=== PATIENT | female | born 1990 | race Hispanic/Latino ===

== ENCOUNTER 2023-04-29 15:37 | Emergency (ER) | payer SELFPAY ==
--- NOTE | ~2023-04-29 | XR_ITS ---
EXAMINATION: XR chest 2V DATE: 04/29/2023 22:32 INDICATION: Fever. Congestion. TECHNIQUE: Frontal and lateral views of the chest were obtained. COMPARISON: None. FINDINGS: There is no pneumonia, pleural effusion, or pneumothorax. Cardiomegaly is noted. IMPRESSION: 1. Cardiomegaly. Reviewed, dictated and finalized at location E. C COPYIST IMPRESSION: 1. Cardiomegaly.
[2023-04-29 16:12] VITALS: BP 130/84; PULSE 112; RESP 20; TEMP 37.7; O2SAT 99
[2023-04-29 17:30] LABS: Influenza A QL RT-PCR Negative (Negative); Influenza B QL RT-PCR Negative (Negative); RSV RNA, RT-PCR Negative (Negative); SARS-CoV-2 RNA PCR Negative (Negative)
--- NOTE | 2023-04-29 21:40 | ECG_ITS ---
Measurements Intervals [place] Rate: 82 P: 72 WA: 143 QRS: -6 QRSD: 94 T: -28 QT: 392 QTc: 459 Interpretive Statements SINUS RHYTHM POSSIBLE LEFT ATRIAL ENLARGEMENT T WAVE ABNORMALITY IN ANTERIOR LEADS- CONSIDER ISCHEMIA BASELINE ARTIFACT- I, III, AVL ABNORMAL ECG NO PREVIOUS ECG AVAILABLE FOR COMPARISON Electronically Signed On 04-30-2023 6:27:46 [employer] by Reginald Tinsley D.O.
--- NOTE | 2023-04-29 21:40 | ED.GENADULT ---
HPI - General Adult General Chief complaint: Unspecified Stated complaint: nausea, headaches, pain everywhere Time Seen by Provider: 04/29/23 19:29 History of Present Illness HPI narrative: 32-year-old female reports for evaluation for nausea, body aches, subjective fever, chills, headache and sore throat since yesterday. Patient states her throat hurts worse when swallowing. LMP 1 week ago. Denies diarrhea, vomiting, abdominal pain, vaginal discharge or concern for STDs, cough, dyspnea, Nuchal rigidity. Denies recent head injury or trauma, vision changes, focal numbness or weakness. denies dysuria, hematuria, urinary frequency urgency. Related Data Allergies Allergy/AdvReac Type Severity Reaction Status Date / Time No Known Allergies Allergy Verified 04/29/23 16:17 Review of Systems Review of Systems: CONSTITUTIONAL: See HPI EYES: Denies visual changes, redness, or discharge. ENT: see HPI CARDIOVASCULAR: Denies chest pain, palpitations, or edema. RESPIRATORY: Denies cough or dyspnea. GASTROINTESTINAL: see HPI GENITOURINARY: Denies dysuria or hematuria. SKIN: Denies rash or itching. MUSCULOSKELETAL: Denies back pain, joint pain, or myalgia. NEUROLOGIC: See HPI PSYCHIATRIC: Denies anxiety or depression. Exam Narrative: GENERAL: In no acute distress. Ill-appearing. patient resting comfortably in exam bed. She is pleasant and conversational. HEAD: Normocephalic, atraumatic. EYES: PERRLA and EOMI. ENT: Nares clear, no rhinorrhea or epistaxis. Mucous membranes moist. Posterior pharynx with mild erythema. No tonsillar hypertrophy or exudates. Uvula is midline. Patient is tolerating her secretions. no airway compromise. NECK: Supple. No nuchal rigidity. CHEST: Clear to auscultation. No respiratory distress. HEART: Regular rate and rhythm. No murmur heard. Normal peripheral pulses. ABDOMEN: Soft, nontender, nondistended, normal active bowel sounds. No CVA tenderness. No guarding, Rebound or rigidity. SKIN: Warm, dry, no rash. NEURO: No focal deficits. Alert and oriented x3 . Moving all extremities spontaneously. Course Vital Signs Vital signs: Vital Signs Temperature 99.9 F H 04/29/23 16:12 Pulse Rate 112 H 04/29/23 16:12 Respiratory Rate 20 04/29/23 16:12 Blood Pressure 130/84 04/29/23 16:12 Pulse Oximetry 99 04/29/23 16:12 Oxygen Delivery Room Air 04/29/23 16:12 Temperature 98.6 F 04/29/23 23:21 Pulse Rate 99 04/29/23 23:21 Respiratory Rate 15 04/29/23 23:21 Blood Pressure 128/84 04/29/23 23:21 Pulse Oximetry 100 04/29/23 23:21 Oxygen Delivery Room Air 04/29/23 16:12 Medical Decision Making MDM Narrative Medical decision making narrative: 32-year-old female reports for evaluation for nausea, body aches, subjective fever, chills, headache, sore throat x1 day. See HPI for further history. Triage vital significant for tachycardia of 12 and a temperature of 99.9?. She is satting 99% on room air. Exam is significant for the above. CBC with mild leukocytosis of 11.8, no bandemia. Chemistry significant for sodium of 136, potassium of 3.3, otherwise unremarkable. Magnesium is normal. Potassium orally repleted. Urinalysis with 1+ ketones, otherwise no UTI. Flu, COVID, RSV, strep and mono were negative. Chest x-ray shows no acute cardiopulmonary abnormality. is negative. EKG obtain given original sinus tachycardia which shows minimal ST depressions in lead I and II. There are T-wave inversions in lead V3, V4 and V5. Therefore, troponin obtained which is less than 0.012. Patient is denying chest pain or dyspnea. Labs and imaging discussed with the patient. She received IV fluids and headache cocktail with improvement in symptoms. Vitals improved. I suspect a viral syndrome. Encouraged her to drink plenty of fluids. Will send Tylenol ibuprofen for symptomatic control. Advised to follow-up closely with her PCP. Strict ED retu
[2023-04-29] MEDS: SODIUM CHLORIDE 0.9% IV 1,000 ML 999 ML IV CONT (22:19)
[2023-04-29 22:24] LABS: Appearance Urine Clear (Clear); Bilirubin Urine Negative (Negative); Blood Urine Negative (Negative); Color Urine Yellow (Yellow); Glucose Urine UA Negative (Negative); Ketones Urine 1+ mg/dL (Negative); Leukocyte Esterase Ur Negative LEU/UL (Negative); Nitrate Urine Negative (Negative); Protein Urine Negative (Negative); Specific Grav Ur 1.029 (1.001-1.035); Urobilinogen Urine 0.2 mg/dL (<2.0); pH Urine 5.5 (5.0-9.0)
[2023-04-29 22:26] LABS: Basophils Absolute Auto 0.1 K/mm3 (0.0-0.1); Basophils Percent Auto 0.4 % (0.2-1.2); Eosinophils Percent Auto 0.3 % (0-4.4); Hemoglobin 13.4 g/dL (12.0-15.0); Immature Granulocyte Absolute 0.04 K/mm3 (0.00-0.031); Immature Granulocyte Percent A 0.3 % (0-0.5); Lymphocytes Absolute Auto 2.03 K/mm3 (0.9-3.2); Lymphocytes Percent Auto 17.3 % (18.3-44.2); Mean Corpuscular HGB Conc 31.2 g/dl (32-36); Mean Corpuscular Hemoglobin 26.7 pg (26-34); Mean Corpuscular Volume 85.8 fl (80-100); Mean Platelet Volume 8.8 fl (7.4-10.4); Monocytes Absolute Auto 0.8 K/mm3 (0.1-0.6); Monocytes Percent Auto 7.1 % (2.6-8.5); Neutrophils Absolute Auto 8.8 K/mm3 (1.3-6.7); Neutrophils Percent Auto 74.6 % (45.5-73.1); Platelet Count Result 438 k/mm3 (150-375); Red Blood Count 5.01 M/mm3 (4.2-5.4); Red Cell Distribution Width 13.9 % (11.5-14.5); White Blood Count 11.8 K/mm3 (4.5-10.0)
[2023-04-29 22:37] LABS: Alanine Aminotransferase 19 U/L (6-35); Albumin Level 4.4 g/dL (3.5-5.1); Alkaline Phosphatase 92 U/L (38-126); Anion Gap 9 mmol/L (8-16); Aspartate Amino Transferase 28 U/L (14-36); Bilirubin,Total 0.6 mg/dL (0.2-1.3); Blood Urea Nitrogen 13 mg/dL (7-17); Calcium 8.7 mg/dL (8.4-10.2); Carbon Dioxide 26 mmol/L (22-30); Chloride 101 mmol/L (98-107); Estimated CRCL calculation 100 ml/min; Estimated Glomerular Filt Rate > 60; Glucose 95 mg/dL (65-110); Potassium 3.3 mmol/L (3.4-5.0); Sodium 136 mmol/L (137-145)
[2023-04-29 22:46] LABS: Add Urine Microscopic? YES
[2023-04-29 22:49] LABS: Strep Group A RT-PCR NOT DETECTED (Negative)
[2023-04-29] MEDS: POTASSIUM CHLORIDE 20 MEQ PACKET (FOR LIQUID) PO (22:58)
[2023-04-29 23:07] LABS: Monoscreen Negative (Negative); Negative Monotest Control Negative (Negative); Positive Monotest Control Positive (Positive)
[2023-04-29] MEDS: PROCHLORPERAZINE EDISYLATE 10 MG/2 ML VIAL IV PUSH (23:18)
[2023-04-29] MEDS: diphenhydrAMINE HCl INJ 50 MG/ML VIAL 25 MG IV PUSH (23:18)
[2023-04-29] MEDS: KETOROLAC 30 MG/ML VIAL (*BKC) IV PUSH (23:18)
[2023-04-29 23:19] LABS: Magnesium 2.2 mg/dL (1.6-2.3)
[2023-04-29 23:21] VITALS: BP 128/84; PULSE 99; RESP 15; TEMP 37; O2SAT 100
[2023-04-29 23:59] LABS: Troponin I < 0.012 ng/mL (0.000-0.034)
== END 2023-04-30 00:45 | disposition home or self-care (01) ==
PROVIDERS: Emergency Medicine; Emergency Provider Physician Assistant
DX: B34.9 Viral infection, unspecified (principal); Z79.84 Long term (current) use of oral hypoglycemic drugs; E87.6 Hypokalemia; Z20.822 Contact with and (suspected) exposure to COVID-19
CPT/HCPCS: 36415; 71046; 80053; 81001; 81025; 83735; 84484; 85025; 86308; 87637; 87651; 93005; 96361; 96374; 96375; 99284; A9270; J0780; J1200; J1885; J7030